=== PATIENT | female | born 2000 | race Hispanic/Latino ===

== ENCOUNTER 2019-04-27 07:21 | Emergency (ER) | payer SELFPAY ==
--- NOTE | 2019-04-27 09:40 | ULT ---
ULTRASOUND PELVIS DOPPLER DUPLEX: Date: 04/27/2019 HISTORY: 18-year-old female status post acute traumatic injury to pelvis from fall. TECHNIQUE: Transabdominal transducer used to evaluate intrapelvic contents with Luo scale, color flow, and spec tral analysis. Endovaginal transducer not used. FINDINGS: Towards the fundus of the uterus, there is an intrauterine gestational sac. Yolk sac present. Embryonic pole crown-rump length is 0.3 cm, 5w 6d. Embryonic heart rate is 119 bpm. No subchorionic hemorrhage. No free fluid in the cul-de-sac identified. Bilateral ovaries are normal in size and have blood flow demonstrated by Doppler. No corpus luteal cyst identified. IMPRESSION: 1. Live, early first trimester intrauterine gestation estimated to be 5 weeks and 6 days gestational age. 2. No evidence of complications. POS: CET
== END 2019-04-27 10:15 | disposition home or self-care (01) ==
LOC: ERS 07:21
DX: O99.89 Other specified diseases and conditions complicating pregnancy, childbirth and the puerperium (principal); R10.32 Left lower quadrant pain; M54.5 Low back pain; W01.0XXA Fall on same level from slipping, tripping and stumbling without subsequent striking against object, initial encounter
CPT/HCPCS: 76856; 93976

== ENCOUNTER 2019-08-07 09:48 | Outpatient (CLI) | payer OTHER ==
--- NOTE | 2019-08-07 12:19 | ULT ---
OB ULTRASOUND: Date: 08/07/2019 HISTORY: anatomy. FINDINGS: A single, live intrauterine gestation is seen with measurements corresponding to an estimated gestati onal age of 21 weeks and 4 days, and MARELY at 12/14/2019. Estimated weight measures 435 gm or 15 oz (69% by Hadlock criteria). Biometry: BPD: 5.02 cm, 21 weeks 2 days HC: 18.79 cm, 21 weeks 1 day AC: 16.18 cm, 21 weeks 2 days FL: 3.79 cm, 22 weeks 1 day heart rate measures 147 beats/minute. Cervical length measures 3.4 cm. Placenta is anteriorly located without evidence of placenta previa. TERRY measures 11.9 cm. A three vessel cord, cord insertion, kidneys, bladder, stomach, four chamber heart, lateral robert tricles, cerebellum, spine, lips/nose, and upper/lower extremities are visualized. No definite anomalies are seen. IMPRESSION: Single, live intrauterine of 21 weeks and 4 days estimated gestational age. MARELY at 12/14/19 18. POS: ARIAN
== END 2019-08-07 09:49 | disposition home or self-care (01) ==
LOC: BICULT 09:48
PROVIDERS: ATTEND Family Medicine
DX: Z34.02 Encounter for supervision of normal first pregnancy, second trimester (principal); Z3A.21 21 weeks gestation of pregnancy
CPT/HCPCS: 76805

== ENCOUNTER 2019-11-28 07:26 | Inpatient (IN) | payer OTHER ==
[2019-11-28 07:53] VITALS: BMI 34.0
[2019-11-28] MEDS ORDERED: hydrALAZINE 20 MG/ML VIAL SLOW IVP PRN ×3 (08:10→23:12)
[2019-11-28 08:26] LABS: #Basophils 0.1 thou/uL (0.0-0.2); #Lymphocytes 1.9 thou/uL (1.20-3.40); #Monocytes 0.5 thou/uL (0.11-0.59); #Neutrophils 3.8 thou/uL (1.40-6.50); %Eosinophils 0.6 % (0.0-10.0); %Lymphocytes 29.9 % (21.0-51.0); %Monocytes 7.5 % (0.0-10.0); %Neutrophils 60.9 % (42.0-75.0); Hemoglobin 14.2 g/dL (12.0-16.0); Mean Corpuscular HGB CONC 33.6 g/dL (32.0-36.0); Mean Corpuscular Hemoglobin 30.3 pg (27.0-31.0); Mean Corpuscular Volume 90.3 fL (78.0-98.0); Mean Platelet Volume 10.8 fL (7.4-10.4); Platelet Count 192 thou/uL (130-400); RBC Distribution Width 12.5 % (11.5-14.5); Red Blood Cell (RBC) Count 4.67 mill/uL (4.20-5.40); White Blood Cell (WBC) Count 6.2 thou/uL (4.8-10.8)
[2019-11-28 08:50] LABS: ALT (SGPT) 65 U/L (8-55); AST (SGOT) 34 U/L (5-34); Albumin 3.4 g/dL (3.5-5.0); Alkaline Phosphatase 242 U/L (40-110); Anion Gap 13 mmol/L (10-20); BUN (Urea Nitrogen) 10 mg/dL (7.0-18.7); Bilirubin, Total 0.4 mg/dL (0.2-1.2); Calc. Creatinine Clearance 188 mL/min (70-130); Calcium 9.5 mg/dL (7.8-10.44); Carbon Dioxide 22 mmol/L (22-29); Chloride 105 mmol/L (98-107); Estimated GFR-MDRD Greater than 90; Globulin 3.5 g/dL (2.4-3.5); Glucose 79 mg/dL (70-105); Potassium 3.8 mmol/L (3.5-5.1); Protein, Total 6.9 g/dL (6.0-8.3); Sodium 136 mmol/L (136-145)
--- NOTE | 2019-11-28 10:02 | PDOC.LDHP ---
Labor and Delivery H&P Chief complaint: contractions HPI: 19 y/o G1 at 37w2d, patient of Dr. Rojo, presents with ctx q 5 mins. Denies VB , LOF, or decreased FM. Denies any other complaints today. ROS neg for HEENT, cv, pulm, gi, gu, neuro, psych, skin, musculoskeletal or constitutional symptoms other than mentioned above. OB History Details: First Current complications: none Current medications: pre-andrey vitamins Previous surgical history: appendectomy Allergies/Adverse Reactions: Allergies Allergy/AdvReac Type Severity Reaction Status Date / Time No Known Allergies Allergy Verified 11/28/19 07:53 Social history: none - Physical Exam Vital signs reviewed and normal: yes Abnormal vital signs: mild range diastolic BPs General: NAD, resting Lungs: nonlabored breathing Abdomen: gravid Extremeties: no edema FHT: category 1 (140s, mod variability, + accels, no decels) [place] contractions every: 5 mins - Vaginal Exam cm dilated: 3 Effacement: 75% Station: -2 - OB Labs Blood type: O RH: positive Antibody Screen: negative HIV: negative RPR: negative HEPSAg: negative 1 hour GCT: negative GBS: negative (reported) Rubella: immune - Assessment L&D Assessment: medically indicated induction - Plan Plan: admit to L&D, labor augmentation if indicated, informed consent obtained, anesthesia consult for pain management
[2019-11-28 12:02] LABS: Creatinine, Urine 197.42 mg/dL (47-110)
[2019-11-28] MEDS ORDERED: Ondansetron PF 4 MG/2 ML Vial IVP PRN ×2 (12:11→23:12)
[2019-11-28] MEDS ORDERED: Carboprost 250 MCG/ML AMP IM PRN (12:11)
[2019-11-28] MEDS ORDERED: NS / Oxytocin 40 units/1000ml 1,000 ML IV PRN (12:11)
[2019-11-28] MEDS ORDERED: Lidocaine 1% (PF) 30 ML VIAL SC PRN (12:11)
[2019-11-28] MEDS ORDERED: HYDROcodone/Acetaminophen 5/325 mg Tablet PO PRN ×4 (12:11→23:12)
[2019-11-28] MEDS ORDERED: Acetaminophen 500 MG TAB PO PRN (12:11)
[2019-11-28] MEDS ORDERED: Ibuprofen 800 MG TAB PO PRN (12:11)
[2019-11-28] MEDS ORDERED: Misoprostol 200 MCG TAB PR PRN (12:11)
[2019-11-28] MEDS ORDERED: Promethazine HCl 25 MG/ML VIAL IM PRN (12:11)
[2019-11-28] MEDS ORDERED: Diphenoxylate HCl/Atropine Tablet PO PRN ×2 (12:11)
[2019-11-28] MEDS ORDERED: NS w/ Oxytocin 10 units 500 ML IV SCH (12:15)
[2019-11-28] MEDS: Lactated Ringer's 1,000 ML IV SCH ×2 (12:43→20:45)
[2019-11-28 13:12] LABS: Hemoglobin 13.2 g/dL (12.0-16.0); Mean Corpuscular HGB CONC 33.7 g/dL (32.0-36.0); Mean Corpuscular Hemoglobin 30.5 pg (27.0-31.0); Mean Corpuscular Volume 90.5 fL (78.0-98.0); Mean Platelet Volume 11.9 fL (7.4-10.4); Platelet Count 185 thou/uL (130-400); RBC Distribution Width 12.5 % (11.5-14.5); Red Blood Cell (RBC) Count 4.34 mill/uL (4.20-5.40); White Blood Cell (WBC) Count 7.9 thou/uL (4.8-10.8)
[2019-11-28 13:53] LABS: Syphilis Antibody Nonreactive (Nonreactive); Syphilis Antibody Index 0.02 S/CO (<1.00 Non-Reactive)
[2019-11-28 13:54] LABS: HBSAg Index 0.19 S/CO (0-0.99); Hep B Surf Ag Non-Reactive S/CO (NonReactive)
[2019-11-28] MEDS ORDERED: NS / Oxytocin 40 units/1000ml 0 ML ONE (16:27)
[2019-11-28] MEDS ORDERED: Lidocaine 1% (PF) 30 ML VIAL ONE (16:27)
[2019-11-28] MEDS: Butorphanol Tartrate 1 MG/ML VIAL SLOW IVP PRN ×2 (18:10→19:32)
--- NOTE | 2019-11-28 20:57 | PDOC.OPDEL ---
OB Operative/Delivery Note Delivery Dr/Surgeon: Oliva Assist: Darrel Pre-Delivery Diagnosis: medically indicated induction Procedure/Post Delivery Dx: spontaneous vaginal delivery Weeks gestation: 37 Anesthesia: none - Findings A Sex: male Weight: 6 lb 3.896 oz - 1 min: 9 - 5 min: 9 - Additional Findings/Plan Placenta delivered: spontaneous Repaired Obstetrical Laceration: vaginal (bilateral (repaired), left periurethral (hemostatic, not repaired)) Estimated blood loss: 179ml Post delivery plan: routine recovery
[2019-11-28] MEDS ORDERED: Bisacodyl 10 MG SUPP PR PRN (23:12)
[2019-11-28] MEDS ORDERED: NS / Oxytocin 40 units/1000ml 1,000 ML IV SCH (23:12)
[2019-11-28] MEDS ORDERED: Benzocaine-Menthol 82.5 ML CAN TOP PRN (23:12)
[2019-11-28] MEDS ORDERED: Milk Of Magnesia 30 ML UDCUP PO PRN (23:12)
[2019-11-28] MEDS ORDERED: Docusate Calcium (SURFAK) 240 MG CAP PO SCH (23:30)
[2019-11-28] MEDS ORDERED: Ibuprofen 800 MG TAB PO SCH (23:30)
[2019-11-29 06:03] LABS: Hemoglobin 11.6 g/dL (12.0-16.0); Mean Corpuscular HGB CONC 34.6 g/dL (32.0-36.0); Mean Corpuscular Hemoglobin 31.8 pg (27.0-31.0); Mean Corpuscular Volume 92.1 fL (78.0-98.0); Mean Platelet Volume 10.6 fL (7.4-10.4); Platelet Count 153 thou/uL (130-400); RBC Distribution Width 12.1 % (11.5-14.5); Red Blood Cell (RBC) Count 3.63 mill/uL (4.20-5.40); White Blood Cell (WBC) Count 10.4 thou/uL (4.8-10.8)
[2019-11-29] MEDS: Prenatal Vitamin 1 TAB PO SCH (08:46)
[2019-11-29] MEDS: Docusate Calcium (SURFAK) 240 MG CAP PO SCH ×2 (08:46→21:22)
[2019-11-29] MEDS: Ferrous Sulfate 325 MG TAB PO SCH ×2 (08:47→17:26)
[2019-11-29] MEDS: Ibuprofen 800 MG TAB PO SCH ×3 (08:47→21:24)
[2019-11-29] MEDS ORDERED: Adacel (T-DAP) 0.5 ML SYRINGE IM ONE (09:00)
[2019-11-29 13:20] LABS: SARS-CoV-2 MS2 Positive; SARS-CoV-2 N Gene Negative; SARS-CoV-2 S Gene Negative; SARS-CoV-2 by NAA Not Detected (NotDetected); SARS-CoV-2 orf1ab Negative
[2019-11-30] MEDS: Ibuprofen 800 MG TAB PO SCH ×2 (05:18→13:50)
[2019-11-30] MEDS: Prenatal Vitamin 1 TAB PO SCH (08:14)
[2019-11-30] MEDS: Docusate Calcium (SURFAK) 240 MG CAP PO SCH (08:14)
[2019-11-30] MEDS: Ferrous Sulfate 325 MG TAB PO SCH (08:15)
[2019-11-30 08:34] VITALS: BP 119/78; TEMP 98.5
== END 2019-11-30 18:30 | disposition home or self-care (01) | DRG 807 ==
LOC: L&D/OP 07:26 → L&D 18:30 → 3SW 23:43
PROVIDERS: ADMIT Family Medicine; ATTEND Family Medicine
PROC: 10E0XZZ Delivery of Products of Conception, External Approach (ICD-10-PCS; principal; 2019-11-29)
PROC: 10907ZC Drainage of Amniotic Fluid, Therapeutic from Products of Conception, Via Natural or Artificial Opening (ICD-10-PCS; 2019-11-29)
PROC: 3E033VJ Introduction of Other Hormone into Peripheral Vein, Percutaneous Approach (ICD-10-PCS; 2019-11-29)
PROC: 0HQ9XZZ Repair Perineum Skin, External Approach (ICD-10-PCS; 2019-11-29)
DX: O14.94 Unspecified pre-eclampsia, complicating childbirth (principal); Z37.0 Single live birth; Z3A.37 37 weeks gestation of pregnancy; O70.0 First degree perineal laceration during delivery
CPT/HCPCS: 36415; 80053; 82570; 84156; 85025; 85027; 86780; 86850; 86900; 86901; 87340; 87635; 99285; J0595; J2001; J2405; J2590; U0003

== ENCOUNTER 2020-08-17 14:48 | Emergency (ER) | payer OTHER ==
[2020-08-17 21:45] LABS: SARS-CoV-2 PCR by NAA Not Detected (NotDetected)
== END 2020-08-17 15:58 | disposition home or self-care (01) ==
LOC: ERS 14:48
DX: J06.9 Acute upper respiratory infection, unspecified (principal); Z20.822 Contact with and (suspected) exposure to COVID-19
CPT/HCPCS: 87635; 99283; U0003; U0005

== ENCOUNTER 2020-10-20 13:34 | Emergency (ER) | payer OTHER | END 2020-10-20 15:26 | disposition home or self-care (01) | LOC: ERS 13:34 | DX: S61.203A Unspecified open wound of left middle finger without damage to nail, initial encounter (principal); W26.0XXA Contact with knife, initial encounter | CPT/HCPCS: 99283 ==